=== PATIENT | male | born 1980 | race Caucasian/White ===

== ENCOUNTER 2024-05-23 08:52 | Emergency (ER) | payer OTHER, SELFPAY ==
--- NOTE | ~2024-05-23 | US_ITS ---
EXAMINATION: US venous doppler [facility] DATE: 05/23/2024 10:48 INDICATION: Left lower limb pain TECHNIQUE: Grayscale ultrasound images without and with compression and Doppler ultrasound images of the left lower extremity veins were obtained. COMPARISON: None. FINDINGS: The visualized portions of left common femoral vein, profunda (deep) femoral vein, femoral vein, popl iteal vein, peroneal veins, posterior tibial veins, gastrocnemius vein and greater saphenous vein out flow are patent. IMPRESSION: 1. No deep venous thrombosis in the left lower limb. Reviewed, dictated and finalized at location A.
--- NOTE | ~2024-05-23 | CT_ITS ---
EXAMINATION: CT [facility] DATE: 05/23/2024 13:09 INDICATION: Left calf, foot, ankle and toe pain. TECHNIQUE: High resolution computed tomography (CT) of the left lower limb from the distal thigh thro ugh the foot was performed with 100 mL Omnipaque-350 intravenous contrast. Additional sagittal and co samuel reconstructions were performed. Automated exposure control and iterative reconstruction technSaqina ue were employed. The dose-length product was 1297.68 mGy-cm. COMPARISON: None FINDINGS: Transmetatarsal phalangeal amputation of the left great toe. Minimally displaced oblique extra-articu lar diaphyseal fracture of the third proximal phalanx and distal metadiaphyseal fracture of the secon d proximal phalanx. Bone alignment is otherwise normal. Joint space the knee are unremarkable with no knee joint effusion. There is an osteochondroma extending distally from the posterior metaphyseal re gion of the proximal tibia. There is an additional osteochondroma extending proximally from the poste rior metaphyseal region of the distal tibia. Mild polyarticular osteoarthritis at the left ankle and multiple joints in the mid and forefoot. No ankle joint effusion. No cortical erosions or periosteal reaction to suggest osteomyelitis. No abscess or other abnormal fluid collections. There is small flaquito unt of nonhemodynamically significant atherosclerotic plaque along the arteries at the left calf. The anterior tibial artery is relatively atretic or there is runoff below the level of the ankle and the larger caliber posterior tibial and peroneal arteries. IMPRESSION: 1. No evident periosteal reaction or osteolysis to suggest osteomyelitis. 2. Minimal displaced recent fractures of the left second and third proximal phalanges. 3. Status post left great toe amputation. 4. 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 Reviewed, dictated and finalized at location A. IMPRESSION: 1. No evident periosteal reaction or osteolysis to suggest osteomyelitis. 2. Minimal displaced recent fractures of the left second and third proximal pha langes. 3. Status post left great toe amputation. 4. 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
--- NOTE | ~2024-05-23 | XR_ITS ---
Left foot Technique: AP, oblique, and lateral views were obtained. Clinical History: Pain, diabetes, prior fracture Findings: There are oblique, minimally fractures of the second and third proximal phalangeal shafts. Prior amputation of the phalanges of the great toe.. Joint spaces are preserved without erosive or de generative change. Soft tissues are unremarkable. Impression: Acute, oblique, mildly displaced fractures of the second and third proximal phalanges. Prior amputation of the phalanges of the great toe. Reviewed, dictated and finalized at location M. Impression: Acute, oblique, mildly displaced fractures of the second and third proximal pha langes. Prior amputation of the phalanges of the great toe.
--- NOTE | ~2024-05-23 | XR_ITS ---
Left ankle Technique: AP, oblique, and lateral views were obtained. Clinical History: Fracture, diabetes, pain Findings: No acute fracture or dislocation is seen. Osseous alignment is anatomic. Ankle mortise and other visualized joint spaces are preserved. Small osteochondral present at the posterior aspect of t he distal tibia. Soft tissues are otherwise unremarkable. Impression: No acute abnormality at the ankle. Small osteochondroma the posterior aspect of the distal tibia. Reviewed, dictated and finalized at location M. Impression: No acute abnormality at the ankle. Small osteochondroma the posterior aspect of the distal tibia.
[2024-05-23 08:59] VITALS: BP 131/71; BP 133/74; PULSE 80; PULSE 89; RESP 18; TEMP 36.7; O2SAT 98
[2024-05-23 09:03] VITALS: BP 131/71; PULSE 84; RESP 18; O2SAT 97
[2024-05-23 09:31] VITALS: BP 118/73; PULSE 81; RESP 20; O2SAT 96
--- NOTE | 2024-05-23 09:31 | ED.LOWEXIN ---
HPI - Extremity Injury (Lower) General Chief Complaint: Extremity Injury, Lower <Mindy Naranjo APRN - Last Filed: 05/23/24 14:41> Stated Complaint: broken left toes <Mindy Naranjo APRN - Last Filed: 05/23/24 14:41> Time Seen by Provider: 05/23/24 09:07 <Mindy Naranjo APRN - Last Filed: 05/23/24 14:41> History of Present Illness HPI Narrative: Patient is a 43-year-old male who presents to the ER with complaints of left toe, foot, and calf pain. He reports he is a type 1 diabetic and that his blood sugars have been slightly elevated lately which has happened in the past when he gets an infection. Patient reports he injured his first phalange about 15 years ago. The injury led to an infection and patient ended needing his 1st phalange on his foot to be amputated. Patient believes he kicked a wall or door with his left foot approximately 2 weeks ago. He reports he went to outside ER and they told him his 2nd and 3rd phalanges were fractured. Patient has been wearing a postop boot for the past 12 days and reports his pain has not lessened and now he feels pain in the ball of his foot that radiates up to his ankle and calf. He reports he has history of type 1 diabetes, AFib, and gastroparesis. Patient has a primary care provider, partner manager, and administrative support technician in [place]. He denies chest pain, shortness a breath, but does endorse palpitations when he exerts himself and moves around. <Mindy Naranjo APRN - Last Filed: 05/23/24 14:41> Onset (ago): month(s) <Mindy Naranjo APRN - Last Filed: 05/23/24 14:41> Related Data Allergies/Adverse Reactions: Allergies Allergy/AdvReac Type Severity Reaction Status Date / Time erythromycin base Allergy Swelling Verified 05/23/24 08:58 <Mindy Naranjo APRN - Last Filed: 05/23/24 14:41> Review of Systems Review of Systems: All systems reviewed & are unremarkable except as noted in HPI and below <Mindy Naranjo APRN - Last Filed: 05/23/24 14:41> Exam Narrative: GENERAL: Well appearing, well-nourished, non-toxic, in no acute distress. NECK: Supple. No adenopathy, no masses. RESPIRATORY: Airway patent, respirations nonlabored. Clear to auscultation bilaterally, no rales, rhonchi, wheezing. CARDIOVASCULAR: Regular rate and rhythm without murmurs, rubs, or gallops. Peripheral pulses 2+ and equal bilaterally. ABDOMINAL: Soft, nontender, nondistended, no hepatosplenomegaly. Normoactive BS. MUSCULOSKELETAL: Moves all extremities. Strength/ROM intact. Patient endorses pain when ROUTE INSPECTOR manipulates his 2nd and 3rd phalanges. He also endorses pain on the bottom of his foot when ROUTE INSPECTOR flexes and extends his left foot. SKIN: Warm, dry, normal color. No rashes. NEURO: A&O X3. Speech clear. Cranial nerves II-XII grossly intact. No ataxic movements. PSYCHIATRIC: Appropriate mood and affect. Normal interaction. <Mindy Naranjo, RESTAURANT LEAD - Last Filed: 05/23/24 14:41> Course Vital Signs Vital signs: Vital Signs Temperature 98.1 F 05/23/24 08:59 Pulse Rate 89 05/23/24 08:59 Respiratory Rate 18 05/23/24 08:59 Blood Pressure 131/71 05/23/24 08:59 Pulse Oximetry 98 05/23/24 08:59 Oxygen Delivery Room Air 05/23/24 08:59 Temperature 98.1 F 05/23/24 08:59 Pulse Rate 79 05/23/24 12:01 Respiratory Rate 18 05/23/24 12:01 Blood Pressure 115/59 L 05/23/24 12:01 Pulse Oximetry 96 05/23/24 12:01 Oxygen Delivery Room Air 05/23/24 08:59 <Mindy Naranjo, RESTAURANT LEAD - Last Filed: 05/23/24 14:41> Vital Signs Temperature 98.1 F 05/23/24 08:59 Pulse Rate 89 05/23/24 08:59 Respiratory Rate 18 05/23/24 08:59 Blood Pressure 131/71 05/23/24 08:59 Pulse Oximetry 98 05/23/24 08:59 Oxygen Delivery Room Air 05/23/24 08:59 Temperature 98.1 F 05/23/24 08:59 Pulse Rate 79 05/23/24 12:01 Respiratory Rate 18 05/23/24 12:01 Blood Pressure 115/59 L 05/23/24 12:01 Puls
[2024-05-23 10:09] LABS: Basophils Percent Auto 0.6 % (0.2-1.2); Eosinophils Absolute Auto 0.1 K/mm3 (0-0.3); Eosinophils Percent Auto 2.6 % (0-4.4); Hematocrit 42.1 % (42.0-52.0); Hemoglobin 14.6 g/dL (14.0-18.0); Immature Granulocyte Absolute 0.02 K/mm3 (0.00-0.031); Immature Granulocyte Percent A 0.4 % (0-0.5); Lymphocytes Percent Auto 55.1 % (18.3-44.2); Mean Corpuscular HGB Conc 34.7 g/dl (32-36); Mean Corpuscular Hemoglobin 31.3 pg (26-34); Mean Corpuscular Volume 90.1 fl (80-100); Mean Platelet Volume 9.4 fl (7.4-10.4); Monocytes Absolute Auto 0.7 K/mm3 (0.1-0.6); Monocytes Percent Auto 13.4 % (2.6-8.5); Neutrophils Absolute Auto 1.4 K/mm3 (1.3-6.7); Neutrophils Percent Auto 27.9 % (45.5-73.1); Platelet Count Result 164 k/mm3 (150-375); Red Blood Count 4.67 M/mm3 (4.6-6.20); White Blood Count 5.1 K/mm3 (4.5-10.0)
[2024-05-23 10:28] LABS: Alanine Aminotransferase 19 U/L (6-50); Albumin Level 4.2 g/dL (3.5-5.1); Alkaline Phosphatase 86 U/L (38-126); Anion Gap 5 mmol/L (4-12); Aspartate Amino Transferase 19 U/L (17-59); Bilirubin,Total 0.3 mg/dL (0.2-1.3); Blood Urea Nitrogen 13 mg/dL (9-20); Calcium 9.4 mg/dL (8.4-10.2); Carbon Dioxide 23 mmol/L (22-30); Chloride 104 mmol/L (98-107); Estimated CRCL calculation 116 ml/min; Estimated Glomerular Filt Rate > 60; Glucose 123 mg/dL (65-110); Lactic Acid Reflex 1.1 mmol/L (0.7-2.0); Sodium 132 mmol/L (137-145); Uric Acid 2.3 mg/dL (3.5-8.5)
[2024-05-23 10:43] LABS: D Dimer 0.39 ug/mL (<0.48)
[2024-05-23 11:00] VITALS: BP 119/73; PULSE 80; RESP 18; O2SAT 95
[2024-05-23 11:30] VITALS: BP 120/65; PULSE 79; RESP 18; O2SAT 95
[2024-05-23 12:01] VITALS: BP 115/59; PULSE 79; RESP 18; O2SAT 96
== END 2024-05-23 14:47 | disposition home or self-care (01) ==
PROVIDERS: Emergency Provider Registered Nurse; PCP Family Medicine
DX: S92.512A Displaced fracture of proximal phalanx of left lesser toe(s), initial encounter for closed fracture (principal); I48.91 Unspecified atrial fibrillation; E10.43 Type 1 diabetes mellitus with diabetic autonomic (poly)neuropathy; K31.84 Gastroparesis; Z89.412 Acquired absence of left great toe; D16.32 Benign neoplasm of short bones of left lower limb; W22.8XXA Striking against or struck by other objects, initial encounter
CPT/HCPCS: 36415; 73610; 73630; 73701; 80053; 83605; 84100; 84550; 85025; 85380; 93971; 99284; Q9967